=== PATIENT | male | born 1985 | race Caucasian/White ===

== ENCOUNTER 2016-05-12 12:32 | Inpatient (IN) | payer OTHER, MEDICARE ==
[~2016-05-12 12:32] MED LIST: RANI150 PO; SUCR1 PO; ZIPR40 PO
[2016-05-12] MEDS ORDERED: ALUMINUM/MAGNESIUM/SIMETH 30 ML CUP PO PRN (15:45)
[2016-05-12] MEDS ORDERED: LORazepam 2 MG/ML VIAL IM PRN (15:45)
[2016-05-12] MEDS ORDERED: MAGNESIUM HYDROXIDE SUSP 30 ML CUP PO PRN (15:45)
[2016-05-12] MEDS ORDERED: ACETAMINOPHEN 325 MG TAB PO PRN (15:45)
[2016-05-12 17:07] VITALS: BP 166/88; PULSE 78; RESP 16; TEMP 98.6
[2016-05-12] MEDS: LORazepam 1 MG TAB PO PRN (17:51)
[2016-05-12] MEDS: REMOVE OLD NICOTINE PATCH T-DERMAL SCH (21:00)
[2016-05-13 06:28] VITALS: BP 144/87; PULSE 71; RESP 16; TEMP 97.6; O2SAT 97
[2016-05-13 08:17] LABS: ANION GAP 7 MEQ/L (5-15); BICARBONATE 29.7 MEQ/L (21.0-32.0); BLOOD UREA NITROGEN 7 MG/DL (7-18); CHLORIDE 105 MEQ/L (98-107); GLOMERULAR FILTRATION RATE 76 ML/MIN (>89); HDL CHOLESTEROL 31.8 MG/DL (40.0-60.0); LDL CHOLESTEROL 106 MG/DL (0-99); POTASSIUM 3.6 MEQ/L (3.5-5.1); SODIUM (NA) 142 MEQ/L (136-145)
[2016-05-13] MEDS: NICOTINE 21 MG/24 HR PATCH T-DERMAL SCH (08:56)
[2016-05-13] MEDS: risperiDONE 1 MG TAB PO SCH ×2 (12:30→22:13)
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
[2016-05-13 14:33] LABS: HEMOGLOBIN A1a 1.2 %; HEMOGLOBIN F 1.2 %; HEMOGLOBIN LA1C 1.9 %; HEMOGLOBIN P3 3.6 %
[2016-05-13 18:35] VITALS: BP 128/74; PULSE 80; RESP 16; TEMP 98.8; O2SAT 96
[2016-05-13] MEDS: REMOVE OLD NICOTINE PATCH T-DERMAL SCH (21:00)
[2016-05-14 05:44] VITALS: BP 115/69; PULSE 62; RESP 18; TEMP 97.5; O2SAT 99
[2016-05-14] MEDS: risperiDONE 1 MG TAB PO SCH (09:00)
[2016-05-14] MEDS: NICOTINE 21 MG/24 HR PATCH T-DERMAL SCH (09:00)
--- NOTE | 2016-05-14 13:15 | HHI.PYPN ---
Subjective Remarks Patient remains delusional and feels that his parents are now . He feels he is being watched and persecuted by others who are in the law enforcement community. He is unsure of what medications he takes but is willing to try Abilify. This physician is interest and Abilify due to the long acting injectable preventing relapse. Review of Systems ROS Limitations: Clinical Condition Except as stated in HPI: all other systems reviewed are Neg Objective Alert: Yes [place]: Person, Place, Date Mood: Anxious, Calm Affect: Restricted Memory Intact: Immediate, Remote Hallucinations: Auditory Delusions: Yes Delusion Type: Paranoid, Other Suicidal: Ideation Homicidal: Ideation Insight/Judgement Impaired. Vitals/IOs Vital Signs Date Time Temp Pulse Resp B/P Pulse Ox O2 Delivery O2 Flow Rate FiO2 05/14/16 05:44 97.5 62 18 115/69 99 Intake and Output 05/13/16 05/13/16 05/14/16 08:00 16:00 00:00 Intake Total 240 ml 360 ml Balance 240 ml 360 ml Assessment & Plan Problem List: (1) Schizoaffective disorder ICD Code: F25.9 Assessment & Plan Estimated LOS: 5 days patient is obviously grossly psychotic. He remains quite delusional and complains of persecution. He would like to return to [place], working his parents supposedly live but in the next sentence he says his parents are . Unfortunately, the patient has a history of noncompliance and this physician plans to put the patient on Abilify Maintena in order to help him with relapse. Justification for Cont. Inpt. Grossly psychotic and unable to care for self. Problem Qualifiers (1) Schizoaffective disorder: Qualified Code: F25.0 - Schizoaffective disorder, bipolar type Gumaro Contreras MD May 14, 2016 13:15
[2016-05-14 17:00] VITALS: BP 152/89; PULSE 91; RESP 18; TEMP 98.1; O2SAT 97
[2016-05-14] MEDS: REMOVE OLD NICOTINE PATCH T-DERMAL SCH (21:00)
[2016-05-15 06:40] VITALS: BP 129/69; PULSE 78; RESP 18; TEMP 97.4; O2SAT 97
[2016-05-15] MEDS: NICOTINE 21 MG/24 HR PATCH T-DERMAL SCH (09:00)
--- NOTE | 2016-05-15 10:01 | HHI.PYPN ---
Subjective Remarks Patient remains paranoid and reclusive and does not socialize with other patients. He is willing to try Abilify after extensive explanation from this physician. Review of Systems ROS Limitations: Clinical Condition Objective Alert: Yes [place]: Person, Place, Date Mood: Anxious, Calm Affect: Restricted Memory Intact: Immediate, Recent, Remote Hallucinations: Auditory Delusions: Yes Delusion Type: Paranoid, Other Suicidal: Ideation Homicidal: Ideation Insight/Judgement Impaired but adequate. Vitals/IOs Vital Signs Date Time Temp Pulse Resp B/P Pulse Ox O2 Delivery O2 Flow Rate FiO2 05/15/16 06:40 97.4 78 18 129/69 97 Assessment & Plan Problem List: (1) Schizoaffective disorder ICD Code: F25.9 Assessment & Plan Estimated LOS: 3 days will attempt to stabilize patient on Abilify and attempted to titrate him off Haldol. Justification for Cont. Inpt. Paranoid and unable to care for self. Problem Qualifiers (1) Schizoaffective disorder: Qualified Code: F25.0 - Schizoaffective disorder, bipolar type Gumrao Contreras MD May 15, 2016 10:01
[2016-05-15 17:58] VITALS: BP 145/95; PULSE 87; RESP 18; TEMP 98.1; O2SAT 97
[2016-05-15] MEDS: REMOVE OLD NICOTINE PATCH T-DERMAL SCH (21:00)
[2016-05-15] MEDS: ARIPiprazole 5 MG TAB PO SCH (21:07)
[2016-05-16 06:00] VITALS: BP 108/59; PULSE 88; RESP 18; TEMP 97.4; O2SAT 98
[2016-05-16] MEDS: NICOTINE 21 MG/24 HR PATCH T-DERMAL SCH (09:00)
--- NOTE | 2016-05-16 12:59 | HHI.PYPN ---
Subjective Remarks Patient is feeling somewhat better but continues to report paranoid delusions and auditory hallucinations. He does feel less anxious on the low dose Abilify. Review of Systems ROS Limitations: Clinical Condition Except as stated in HPI: all other systems reviewed are Neg Objective Alert: Yes [place]: Person, Place, Date Mood: Anxious Affect: Restricted Memory Intact: Immediate, Recent, Remote Hallucinations: Auditory Delusions: Yes Delusion Type: Paranoid, Other Suicidal: Ideation Homicidal: Ideation Insight/Judgement Impaired but slightly improved. Vitals/IOs Vital Signs Date Time Temp Pulse Resp B/P Pulse Ox O2 Delivery O2 Flow Rate FiO2 05/16/16 06:00 97.4 88 18 108/59 98 Assessment & Plan Problem List: (1) Schizoaffective disorder ICD Code: F25.9 Assessment & Plan Estimated LOS: 3 days waiting for Abilify to help improve the patient's condition and may titrate the dose upwards. Currently the patient remains psychotic but cooperative. Justification for Cont. Inpt. Psychotic and unable to care for himself. Problem Qualifiers (1) Schizoaffective disorder: Qualified Code: F25.0 - Schizoaffective disorder, bipolar type Gumaro Contreras MD May 16, 2016 12:59
[2016-05-16 17:12] VITALS: BP 140/81; PULSE 70; RESP 18; TEMP 97.5; O2SAT 98
[2016-05-16] MEDS: REMOVE OLD NICOTINE PATCH T-DERMAL SCH (21:00)
[2016-05-16] MEDS: ARIPiprazole 5 MG TAB PO SCH (21:02)
[2016-05-17 05:28] VITALS: BP 97/63; PULSE 61; RESP 18; TEMP 97.8; O2SAT 96
[2016-05-17] MEDS: NICOTINE 21 MG/24 HR PATCH T-DERMAL SCH (09:00)
[2016-05-17] MEDS: LORazepam 1 MG TAB PO PRN ×3 (09:41→20:39)
--- NOTE | 2016-05-17 11:14 | HHI.PYPN ---
Subjective Remarks Continues to report paranoia, auditory hallucinations and suicidal ideation. Abilify has been titrated but needs time to work. Review of Systems ROS Limitations: Clinical Condition Objective Alert: Yes [place]: Person, Place, Date Mood: Anxious Affect: Restricted Memory Intact: Immediate, Recent, Remote Hallucinations: Auditory Delusions: Yes Delusion Type: Paranoid, Other Suicidal: Ideation Homicidal: Ideation Insight/Judgement Adequate Vitals/IOs Vital Signs Date Time Temp Pulse Resp B/P Pulse Ox O2 Delivery O2 Flow Rate FiO2 05/17/16 05:28 97.8 61 18 97/63 96 Intake and Output 05/16/16 05/16/16 05/17/16 08:00 16:00 00:00 Intake Total 360 ml Balance 360 ml Assessment & Plan Problem List: (1) Schizoaffective disorder ICD Code: F25.9 Assessment & Plan Estimated LOS: 3 days patient remains psychotic with paranoid delusions and auditory hallucinations of a command nature, telling him to harm himself. However he also is trying very hard and successfully to be compliant and cooperative with the hospital staff and this physician. Justification for Cont. Inpt. Command auditory hallucinations to harm himself. Problem Qualifiers (1) Schizoaffective disorder: Qualified Code: F25.0 - Schizoaffective disorder, bipolar type Gumaro Contreras MD May 17, 2016 11:14
[2016-05-17] MEDS: ARIPiprazole 5 MG TAB PO SCH (20:35)
[2016-05-17] MEDS: REMOVE OLD NICOTINE PATCH T-DERMAL SCH (21:00)
[2016-05-17 21:55] VITALS: BP 135/87; PULSE 89; RESP 18; TEMP 98.9; O2SAT 98
[2016-05-18 06:27] VITALS: BP 136/60; PULSE 81; RESP 18; TEMP 98.2; O2SAT 97
[2016-05-18] MEDS: LORazepam 1 MG TAB PO PRN ×2 (09:27→16:25)
[2016-05-18] MEDS: NICOTINE 21 MG/24 HR PATCH T-DERMAL SCH (09:27)
--- NOTE | 2016-05-18 11:59 | HHI.PYPN ---
Subjective Remarks Patient seen in activities room nurse Glenis. Patient calm though somewhat vigilant with me. He is cooperative. Now stating that he realizes his family is alive he denies any voices or visions at the present time, denies suicidality. Is compliant with medications. He states part of his relapse may have been due to his running out of medications and being unable to get the refill timely. He states he does see a clinician through [facility]. He also stated that his family is willing to have him come home today. We need to verify this with his family before making any decisions about discharge. In the meantime we'll increase his Abilify to 5 mg twice a day Review of Systems Except as stated in HPI: all other systems reviewed are Neg Objective Alert: Yes [place]: Person, Place, Date Mood: Anxious Affect: Restricted Memory Intact: Immediate, Recent, Remote Hallucinations: Auditory (denies at this time) Delusions: Yes Delusion Type: Paranoid (marked decrease), Other Suicidal: Ideation Homicidal: Ideation Insight/Judgement Poor Vitals/IOs Vital Signs Date Time Temp Pulse Resp B/P Pulse Ox O2 Delivery O2 Flow Rate FiO2 05/18/16 06:27 98.2 81 18 136/60 97 Assessment & Plan Problem List: (1) Schizoaffective disorder ICD Code: F25.9 Assessment & Plan Estimated LOS: days patient remains vigilant, compliant with medication, now denying suicidality homicidality voices or visions. The need to contact patient 's family to verify if they feel he is improved 0.3 may be discharged to their care with outpatient follow-up through [facility] Justification for Cont. Inpt. Distant patient could decompensate if placed in the lower level of care Discharge Planning To be determined Problem Qualifiers (1) Schizoaffective disorder: Qualified Code: F25.0 - Schizoaffective disorder, bipolar type oRmario Yoo MD May 18, 2016 11:59
[2016-05-18 19:28] VITALS: BP 125/82; PULSE 87; RESP 19; TEMP 97.4; O2SAT 98
[2016-05-18] MEDS: ARIPiprazole 5 MG TAB PO SCH (20:22)
[2016-05-18] MEDS: REMOVE OLD NICOTINE PATCH T-DERMAL SCH (21:00)
[2016-05-19 06:33] VITALS: BP 99/73; PULSE 72; RESP 17; TEMP 98; O2SAT 98
[2016-05-19] MEDS: NICOTINE 21 MG/24 HR PATCH T-DERMAL SCH (09:00)
[2016-05-19] MEDS: ARIPiprazole 5 MG TAB PO SCH ×2 (09:21→20:40)
--- NOTE | 2016-05-19 19:19 | HHI.PYPN ---
Subjective Remarks Pt seen and discussed with staff. He reports that AH have decreased and he is tolerating Abilify without side effects. Cooperative with care. No SI/HI. No agitation on unit. Review of Systems Psychiatric: COMPLAINS OF: Hallucinations Objective Alert: Yes [place]: Person, Place, Date Mood: Anxious Affect: Restricted Memory Intact: Immediate, Recent, Remote Hallucinations: Auditory (vague, decreased) Delusions: Yes Delusion Type: Paranoid (mild), Other Suicidal: Ideation (denies) Homicidal: Ideation (denies) Insight/Judgement limited Vitals/IOs Vital Signs Date Time Temp Pulse Resp B/P Pulse Ox O2 Delivery O2 Flow Rate FiO2 05/19/16 06:33 98.0 72 17 99/73 98 Assessment & Plan Problem List: (1) Schizoaffective disorder ICD Code: F25.9 Assessment & Plan Continue current tx plan. Estimated LOS: days Justification for Cont. Inpt. risk of decompensation Problem Qualifiers (1) Schizoaffective disorder: Qualified Code: F25.0 - Schizoaffective disorder, bipolar type Alia Jasso MD May 19, 2016 19:19
[2016-05-19 21:37] VITALS: BP 135/85; PULSE 73; RESP 16; TEMP 98.4; O2SAT 95
[2016-05-20 06:00] VITALS: BP 127/66; PULSE 68; RESP 18; TEMP 98.4; O2SAT 98
[2016-05-20] MEDS: LORazepam 1 MG TAB PO PRN ×2 (09:24→21:29)
[2016-05-20] MEDS: ARIPiprazole 5 MG TAB PO SCH ×2 (09:24→21:23)
[2016-05-20 18:09] VITALS: BP 129/80; PULSE 70; RESP 18; TEMP 97.7; O2SAT 97
--- NOTE | 2016-05-20 20:24 | HHI.PYPN ---
Subjective Remarks Pt seen and discussed with staff. He reports that AH continue to decrease and they have not been bothersome today. He is tolerating medication without side effects. No behavioral problems on unit. He is less isolative on unit. Objective Alert: Yes [place]: Person, Place, Date Mood: Calm Affect: Restricted Memory Intact: Immediate, Recent, Remote Hallucinations: Auditory (decreased) Delusions: Yes Delusion Type: Paranoid (mild), Other Suicidal: Ideation (denies) Homicidal: Ideation (denies) Insight/Judgement fair Vitals/IOs Vital Signs Date Time Temp Pulse Resp B/P Pulse Ox O2 Delivery O2 Flow Rate FiO2 05/20/16 18:09 97.7 70 18 129/80 97 Assessment & Plan Problem List: (1) Schizoaffective disorder ICD Code: F25.9 Assessment & Plan continue current tx plan. Estimated LOS: days Justification for Cont. Inpt. risk of decompensation Problem Qualifiers (1) Schizoaffective disorder: Qualified Code: F25.0 - Schizoaffective disorder, bipolar type Alia Jasso MD May 20, 2016 20:24
[2016-05-21 06:20] VITALS: BP 121/75; PULSE 65; RESP 18; TEMP 98.4; O2SAT 97
[2016-05-21] MEDS: ARIPiprazole 5 MG TAB PO SCH (09:09)
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
[2016-05-21] MEDS ORDERED: ARIP1TAB11 PO (15:27)
[2016-05-21 16:00] VITALS: BP 133/78; PULSE 75; RESP 18; TEMP 97.4; O2SAT 96
== END 2016-05-21 18:15 | disposition home or self-care (01) | DRG 885 ==
LOC: H260 12:32
PROVIDERS: ADMIT Psychiatry & Neurology Psychiatry; ATTEND Psychiatry & Neurology Psychiatry
DX: F25.0 Schizoaffective disorder, bipolar type (principal); F22 Delusional disorders; R45.851 Suicidal ideations; Z91.410 Personal history of adult physical and sexual abuse; Z91.411 Personal history of adult psychological abuse; Z91.19 Patient's noncompliance with other medical treatment and regimen
CPT/HCPCS: 80048; 80061; 83036

== ENCOUNTER 2016-06-29 12:02 | Inpatient (IN) | payer MEDICARE, OTHER ==
[~2016-06-29] VITALS: Ht 167.6 cm; Wt 85.0 kg
[~2016-06-29 12:02] MED LIST changes: +ARIP1TAB11 PO
[2016-06-29 12:20] VITALS: BP 120/82; PULSE 70; RESP 20; TEMP 98.6; O2SAT 97
--- NOTE | 2016-06-29 12:21 | PD ---
HPI Chief Complaint: Allan act Time Seen by Provider: 12:20 Travel History International Travel<30 days: No Contact w/Intl Traveler<30days: No Traveled to known affect area: No History of Present Illness HPI 31-year-old male came to the emergency room brought in by the leaf binner as a Allan act for threatening to kill himself and hearing voices. Patient continues to say this when I interviewed him. He says he does not feel like he needed wants to live anymore. He also says that he had a left eye surgery done for retinal detachment last November. He was told that his intraocular pressure is high. He has seen a retinal specialist 2 days ago in [facility] where his intraocular pressure was high. He was given eyedrops to apply and follow up in 2 weeks. Patient does not know what the eyedrops are and doesn't care. He did not bring a list of his medications. He was reluctant and giving any information regarding the pharmacy or any other information that would help us find the eyedrops out. [facility] Past Medical History Narrative Medical List of his past medical, surgical, social and family history is reviewed from the nursing note. Asthma: No Autoimmune Disease: No Anxiety: Yes Depression: Yes Heart Rhythm Problems: No Cancer: No Cardiovascular Problems: No High Cholesterol: Yes Chest Pain: No COPD: No Cerebrovascular Accident: No Diabetes: No Diminished Hearing: No Endocrine: No GERD: No Genitourinary: No Headaches: Yes (migrains) Hiatal Hernia: No Immune Disorder: No Kidney Stones: No Musculoskeletal: No Neurologic: No Psychiatric: Yes (Schizo affective, depression) Respiratory: No Immunizations Current: Yes Migraines: No Renal Failure: No Schizophrenia: Yes Seizures: No Sleep Apnea: No Thyroid Disease: No Past Surgical History Abdominal Surgery: No Cardiac Surgery: No Ear Surgery: No Endocrine Surgery: No Eye Surgery: Yes Genitourinary Surgery: No Joint Replacement: No Oral Surgery: No Thoracic Surgery: No Other Surgery: Yes (valve repair) Social History Alcohol Use: No Tobacco Use: Yes (1 ppd) Substance Use: No Allergies-Medications (Allergen,Severity, Reaction): Coded Allergies: Codeine (Verified Allergy, Severe, Anaphylaxis, 10/21/14) Haldol (Verified Allergy, Intermediate, dystonic reaction, 10/22/14) Penicillin (Verified Allergy, Unknown, INCREASED TEMP/HEAQDACHES, 06/29/16) Comments List of his allergies reviewed from the nursing note. Reported Meds & Prescriptions Reported Meds & Active Scripts Active Reported Abilify (Aripiprazole) 10 Mg Tab 10 Mg PO HS [eye] OP HS Narrative Medication List of his home medications reviewed from the nursing note. Information regarding his eyedrops are missing since patient cannot provide us with the name. Review of Systems Except as stated in HPI: all other systems reviewed are Neg Physical Exam Narrative GENERAL: Awake, alert, no obvious distress SKIN: Focused skin assessment warm/dry. HEAD: Atraumatic. Normocephalic. EYES: Pupils equal and round. No scleral icterus. Left conjunctiva is injected. ENT: No nasal bleeding or discharge. Mucous membranes pink and moist. NECK: Trachea midline. No JVD. CARDIOVASCULAR: Regular rate and rhythm. No murmur appreciated. RESPIRATORY: No accessory muscle use. Clear to auscultation. Breath sounds equal bilaterally. GASTROINTESTINAL: Abdomen soft, non-tender, nondistended. Hepatic and splenic margins not palpable. MUSCULOSKELETAL: No obvious deformities. No clubbing. No cyanosis. No edema. NEUROLOGICAL: Awake and alert. No obvious cranial nerve deficits. Motor grossly within normal limits. Normal speech. PSYCHIATRIC: Appropriate mood and affect; insight and judgment normal. Data Data Last Documented VS Vital Signs Date Time Temp Pulse Resp B/P Pulse Ox O2 Delivery O2 Flow Rate FiO2 06/29/16 17:58 98.7 61 18 131/86 95 Room Air Orders Complete Blood Count With Diff (06/29/16 12:28) Comprehensive Metabolic Panel (06/29/16 12:28) Psych Screen (06/29/16 12:28) Drug Screen, Random Urine (06/29/16 12:28) Acetaminophen (Tylenol) (06/29/16 17:00) Admit Order (Ed Use Only) (06/29/16 18:10) Labs Laboratory Tests Test 06/29/16 12:55 White Blood Count 7.0 TH/MM3 Red Blood Count 5.08 MIL/MM3 Hemoglobin 15.6 GM/DL Hematocrit 45.7 % Mean Corpuscular Volume 89.9 FL Mean Corpuscular Hemoglobin 30.7 PG Mean Corpuscular Hemoglobin 34.1 % Concent Red Cell Distribution Width 14.2 % Platelet Count 192 TH/MM3 Mean Platelet Volume 8.2 FL Neutrophils (%) (Auto) 71.9 % Lymphocytes (%) (Auto) 19.8 % Monocytes (%) (Auto) 7.6 % Eosinophils (%) (Auto) 0.4 % Basophils (%) (Auto) 0.3 % Neutrophils # (Auto) 5.0 TH/MM3 Lymphocytes # (Auto) 1.4 TH/MM3 Monocytes # (Auto) 0.5 TH/MM3 Eosinophils # (Auto) 0.0 TH/MM3 Basophils # (Auto) 0.0 TH/MM3 CBC Comment DIFF FINAL Differential Comment Sodium Level 140 MEQ/L Potassium Level 3.5 MEQ/L Chloride Level 107 MEQ/L Carbon Dioxide Level 24.9 MEQ/L Anion Gap 8 MEQ/L Blood Urea Nitrogen 9 MG/DL Creatinine 0.85 MG/DL Estimat Glomerular Filtration 104 ML/MIN Rate Random Glucose 91 MG/DL Calcium Level 8.7 MG/DL Total Bilirubin 0.6 MG/DL Aspartate Amino Transf 18 U/L (AST/SGOT) Alanine Aminotransferase 27 U/L (ALT/SGPT) Alkaline Phosphatase 83 U/L Total Protein 6.6 GM/DL Albumin 3.9 GM/DL Urine Opiates Screen NEG Urine Barbiturates Screen NEG Urine Amphetamines Screen NEG Urine Benzodiazepines Screen NEG Urine Cocaine Screen NEG Urine Cannabinoids Screen POS MDM Medical Decision Making Medical Screen Exam Complete: Yes Emergency Medical Condition: Yes Medical Record Reviewed: Yes Differential Diagnosis Suicidal ideation, substance abuse Narrative Course 1:55 PM blood test results are back. Patient is positive for cannabis but otherwise negative. I medically cleared him. He needs to be followed up by Psych for psych screen. He needs to follow-up with his drop worker outpatient as soon as possible. Procedures EKG Prior to Arrival: No Katelyn Nicole MD June 29, 2016 12:21 Katelyn Nicole MD June 29, 2016 12:21
[2016-06-29 13:20] LABS: BASOPHIL % 0.3 % (0.0-2.0); EOSINOPHIL % 0.4 % (0.0-4.0); HEMATOCRIT 45.7 % (39.0-51.0); HEMO FLAGS DIFF FINAL; LYMPH % 19.8 % (9.0-44.0); LYMPHOCYTE # 1.4 TH/MM3 (1.0-4.8); MEAN CELL VOLUME 89.9 FL (80.0-100.0); MEAN CORPUSCULAR HEMOGLOBIN 30.7 PG (27.0-34.0); MEAN CORPUSCULAR HGB CONC 34.1 % (32.0-36.0); MONO % 7.6 % (0.0-8.0); NEUT % 71.9 % (16.0-70.0); PLATELET COUNT 192 TH/MM3 (150-450); RED BLOOD COUNT 5.08 MIL/MM3 (4.50-5.90); RED CELL DISTRIBUTION WIDTH 14.2 % (11.6-17.2)
[2016-06-29 13:32] LABS: AMPHETAMINE, URINE NEG (NEG); BARBITURATES, URINE NEG (NEG); COCAINE, URINE NEG (NEG)
[2016-06-29 13:43] LABS: ALT (GPT) 27 U/L (12-78); ANION GAP 8 MEQ/L (5-15); AST (GOT) 18 U/L (15-37); BICARBONATE 24.9 MEQ/L (21.0-32.0); BLOOD UREA NITROGEN 9 MG/DL (7-18); CHLORIDE 107 MEQ/L (98-107); GLOMERULAR FILTRATION RATE 104 ML/MIN (>89); POTASSIUM 3.5 MEQ/L (3.5-5.1); SODIUM (NA) 140 MEQ/L (136-145)
[2016-06-29 13:46] LABS: ALKALINE PHOSPHATASE 83 U/L (45-117); TOTAL BILIRUBIN ADULT 0.6 MG/DL (0.2-1.0)
[2016-06-29] MEDS ORDERED: EYE OP (16:37)
[2016-06-29] MEDS ORDERED: ACETAMINOPHEN 500 MG CPLT PO ONE (17:00)
[2016-06-29 17:58] VITALS: BP 131/86; PULSE 61; RESP 18; TEMP 98.7; O2SAT 95
[2016-06-29] MEDS ORDERED: ARIP1TAB5 PO (17:58)
[2016-06-29] MEDS ORDERED: diphenhydrAMINE HCL 50 MG/ML VIAL - HS PRN IM (19:30)
[2016-06-29] MEDS ORDERED: ALUMINUM/MAGNESIUM/SIMETH 30 ML CUP PO PRN (19:30)
[2016-06-29] MEDS ORDERED: MAGNESIUM HYDROXIDE SUSP 30 ML CUP PO PRN (19:30)
[2016-06-29] MEDS: ARIPiprazole 10 MG TAB PO SCH (20:46)
[2016-06-29 22:17] VITALS: BP 130/68; PULSE 57; RESP 17; TEMP 97.4
[2016-06-30 02:19] VITALS: BP 130/68; PULSE 17; RESP 17; TEMP 97.4; O2SAT 97
[2016-06-30 06:23] VITALS: BP 130/64; PULSE 52; RESP 18; TEMP 97.6; O2SAT 98
[2016-06-30] MEDS: ARIPiprazole 10 MG TAB PO SCH ×2 (08:59→21:03)
[2016-06-30] MEDS ORDERED: MAGNESIUM HYDROXIDE SUSP 30 ML CUP PO PRN (09:15)
[2016-06-30] MEDS ORDERED: ACETAMINOPHEN 325 MG TAB PO PRN (09:15)
[2016-06-30] MEDS ORDERED: hydrOXYzine HCL 50 MG TAB PO PRN (09:15)
[2016-06-30] MEDS ORDERED: ALUMINUM/MAGNESIUM/SIMETH 30 ML CUP PO PRN (09:15)
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
[2016-06-30 14:09] LABS: ANION GAP 8 MEQ/L (5-15); BICARBONATE 27.5 MEQ/L (21.0-32.0); BLOOD UREA NITROGEN 9 MG/DL (7-18); CHLORIDE 107 MEQ/L (98-107); GLOMERULAR FILTRATION RATE 77 ML/MIN (>89); SODIUM (NA) 142 MEQ/L (136-145)
[2016-06-30 14:11] LABS: LDL CHOLESTEROL 87 MG/DL (0-99)
[2016-06-30] MEDS: PANTOPRAZOLE SOD 40 MG DELAYED RELEASE TAB PO SCH (15:20)
--- NOTE | 2016-06-30 16:19 | PD.CONS ---
[facility] By [facility]iatry team Reason for Consult Assist in management of medical condition Primary Care Physician No Primary Care Physician Diagnoses: History of Present Illness Patient is a 71-year-old male with primary medical history of depression, anxiety, retinal detachment, glaucoma who came into the hospital under [place] act by clinical pharmacist secondary to threatening to kill himself and hearing voices. As per review of records, patient states he doesn't want to live anymore. He is now admitted to inpatient psychiatry unit for further evaluation. Consulted for medical management. Patient seen and examined today. Reports he has retinal detachment with surgery November 2015. 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 She also has eyedrops for his left eye that he doesn't remember the name of. States that he has increased intraocular pressure that he needed eyedrops. Patient states that he is in a lot of stress at home and that his family members [place] his brother or being hostile to him in they have been having family fights. He complains of abdominal pain all throughout, nonradiating, not aggravated or relieved by anything, intermitted states it comes and goes. Reports he has a history of ulcers in that he is taking the medication for it prior. He also complains of weakness secondary to starvation. He is trying to get out of his home. Patient also had that he has fevers, he feels that he is warm but unable to tell the temperature or was not able to check it. He also complains of headaches comes and goes starts in the frontal region going of the right side, this has been his chronic problem. Due to retinal detachment and glaucoma, patient's vision on the left eye is limited. Otherwise, denies SOB/ dyspnea. Denies chest pain, palpitations, dizziness. Denies n/v/d. Denies hematuria, dysuria. Review of Systems Except as stated in HPI: all other systems reviewed are Neg Past Family Social History Allergies: Coded Allergies: Codeine (Verified Allergy, Severe, Anaphylaxis, 10/21/14) Haldol (Verified Allergy, Intermediate, dystonic reaction, 10/22/14) Penicillin (Verified Allergy, Unknown, INCREASED TEMP/HEAQDACHES, 06/29/16) Past Medical History Depression Anxiety Schizoaffective disorder Retinal detachment Glaucoma Past Surgical History EGD secondary to ulcers Reported Medications Reported Meds & Active Scripts Active Reported Abilify (Aripiprazole) 10 Mg Tab 10 Mg PO HS [eye] OP HS Active Ordered Medications Current Medications Medications (Trade) Dose Ordered Sig/Radha Route Start Time Stop Time Status Last Admin (Abilify) 10 mg BID PO 06/29/16 21:00 06/30/16 08:59 (Atarax) 50 mg Q6H PRN PO 06/29/16 19:30 (Benadryl) 50 mg HS PRN PO 06/29/16 19:30 (Benadryl Inj) 50 mg HS PRN IM 06/29/16 19:30 (Tylenol) 650 mg Q4H PRN PO 06/29/16 19:30 (Milk Of Magnesia Liq) 30 ml DAILY PRN PO 06/29/16 19:30 (Mag-Al Plus Susp Liq) 30 ml Q6H PRN PO 06/29/16 19:30 (Tylenol) 650 mg Q4H PRN PO 06/30/16 09:15 (Milk Of Magnesia Liq) 30 ml DAILY PRN PO 06/30/16 09:15 (Mag-Al Plus Susp Liq) 30 ml Q6H PRN PO 06/30/16 09:15 (Atarax) 50 mg Q6H PRN PO 06/30/16 09:15 (Protonix) 40 mg DAILY PO 06/30/16 15:00 06/30/16 15:20 Family History Family history of hypertension, diabetes, hyperlipidemia Social History Reports occasional alcohol use Current smoker quarter pack per day Denies illicit drug use, utox positive for cannabis Physical Exam Vital Signs Vital Signs Date Time Temp Pulse Resp B/P Pulse Ox O2 Delivery O2 Flow Rate FiO2 06/30/16 06:23 97.6 52 18 130/64 98 06/30/16 02:19 97.4 17 17 130/68 97 06/29/16 22:17 97.4 57 17 130/68 06/29/16 17:58 98.7 61 18 131/86 95 Room Air Physical Exam GENERAL: This is a well-nourished, well-developed patient, in no apparent distress. SKIN: No rashes, ecchymoses or lesions. Cool and dry. HEAD: Atraumatic. Normocephalic. No temporal or scalp tenderness. EYES: Pupils round and reactive, Left pupil >Right pupil, and sluggish reaction. Extraocular motions intact. No scleral icterus. No injection or drainage. ENT: Nose without bleeding, purulent drainage or septal hematoma. Throat without erythema, tonsillar hypertrophy or exudate. Uvula midline. Airway patent. NECK: Trachea midline. No JVD or lymphadenopathy. Supple, nontender, no meningeal signs. CARDIOVASCULAR: Regular rate and rhythm without murmurs, gallops, or rubs. RESPIRATORY: Clear to auscultation. Breath sounds equal bilaterally. No wheezes , rales, or rhonchi. GASTROINTESTINAL: Abdomen soft, non-tender, nondistended. Bowel sounds active 4. MUSCULOSKELETAL: Extremities without clubbing, cyanosis, or edema. NEUROLOGICAL: Awake and alert. Motor and sensory grossly within normal limits. Five out of 5 muscle strength in all muscle groups. Normal speech. Laboratory Laboratory Tests Test 06/30/16 12:42 Sodium Level 142 Potassium Level 4.0 Chloride Level 107 Carbon Dioxide Level 27.5 Anion Gap 8 Blood Urea Nitrogen 9 Creatinine 1.10 Estimat Glomerular Filtration 77 Rate Random Glucose 97 Calcium Level 8.5 Triglycerides Level 163 Cholesterol Level 149 LDL Cholesterol 87 HDL Cholesterol 29.0 Cholesterol/HDL Ratio 5.13 Result Diagram: 06/29/16 1255 06/30/16 1242 Assessment and Plan Problem List: (1) Schizoaffective disorder ICD Code: F25.9 Status: Acute (2) Depression ICD Code: F32.9 Status: Acute Assessment and Plan Patient is a 71-year-old male with primary medical history of depression, anxiety, retinal detachment, glaucoma who came into the hospital under [place] act by clinical pharmacist secondary to threatening to kill himself and hearing voices. As per review of records, patient states he doesn't want to live anymore. He is now admitted to inpatient psychiatry unit for further evaluation. Consulted for medical management. 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 We will follow patient with you. Written by Sima Culp, acting as scribe for Dr. Patino on 06/30/16 at 16: 19. This note was transcribed by ranjit Culp. I, Dr. Akbar Patino personally performed the history, physical exam, and medical decision making; and confirmed the accuracy of the information in the transcribed note. Authenticated by Dr. Akbar Patino on 06/30/16 at 16:59. Code Status Full code Discussed Condition With Patient, nursing Problem Qualifiers (1) Schizoaffective disorder: Qualified Code: F25.1 - Schizoaffective disorder, depressive type Sima Easton June 30, 2016 16:19 Akbar Patino DO June 30, 2016 16:59
[2016-06-30 16:44] VITALS: BP 124/75; PULSE 74; RESP 18; TEMP 97.8; O2SAT 97
[2016-07-01 06:00] VITALS: BP 132/75; PULSE 80; RESP 16; TEMP 98
[2016-07-01] MEDS: PANTOPRAZOLE SOD 40 MG DELAYED RELEASE TAB PO SCH (09:02)
[2016-07-01] MEDS: ARIPiprazole 10 MG TAB PO SCH ×2 (09:02→20:19)
--- NOTE | 2016-07-01 10:31 | HHI.PYPN ---
Subjective Remarks Patient seen in room nurse Cherelle, patient calm cooperative states that hallucinations are diminishing, denies suicidality, is compliant with his medications. For now continue treatment Review of Systems Except as stated in HPI: all other systems reviewed are Neg Objective Alert: Yes [place]: Person, Place, Date Mood: Anxious (slightly), Calm Affect: Restricted Memory Intact: Comment (fair) Hallucinations: Auditory (decreased) Delusions: No Delusion Type: Other (vigilant) Suicidal: Ideation (denies) Homicidal: Ideation (denies) Insight/Judgment Poor Labs Test 06/30/16 12:42 Sodium Level 142 MEQ/L Potassium Level 4.0 MEQ/L Chloride Level 107 MEQ/L Carbon Dioxide Level 27.5 MEQ/L Anion Gap 8 MEQ/L Blood Urea Nitrogen 9 MG/DL Creatinine 1.10 MG/DL Estimat Glomerular Filtration 77 ML/MIN Rate Random Glucose 97 MG/DL Calcium Level 8.5 MG/DL Triglycerides Level 163 MG/DL Cholesterol Level 149 MG/DL LDL Cholesterol 87 MG/DL HDL Cholesterol 29.0 MG/DL Cholesterol/HDL Ratio 5.13 RATIO Lipase 171 U/L Vitals/IOs Vital Signs Date Time Temp Pulse Resp B/P Pulse Ox O2 Delivery O2 Flow Rate FiO2 07/01/16 06:00 98.0 80 16 132/75 06/30/16 16:44 97 06/29/16 17:58 Room Air Assessment & Plan Problem List: (1) Schizoaffective disorder ICD Code: F25.9 (2) Marijuana abuse ICD Code: F12.10 Assessment & Plan Estimated LOS: days patient continue psychotic somewhat depressed, though improved. For now continue treatment Justification for Cont. Inpt. At this time patient decompensate if placed in a lower level of care Discharge Planning To be determined Request HC Surrog/Guard Advoc?: No Problem Qualifiers (1) Schizoaffective disorder: Qualified Code: F25.1 - Schizoaffective disorder, depressive type Romario Yoo MD July 01, 2016 10:31
[2016-07-01 10:54] LABS: HEMOGLOBIN A1a 1.1 %; HEMOGLOBIN A1b 0.9 %; HEMOGLOBIN Ao 85.7 %; HEMOGLOBIN F 1.1 %; HEMOGLOBIN P3 3.6 %
[2016-07-01] MEDS ORDERED: LATANOPROST 0.005% OPHT SOLN 2.5 ML BTL LEFT EYE ONE (11:15)
[2016-07-01 18:24] VITALS: BP 158/83; PULSE 82; RESP 18; TEMP 98.5; O2SAT 100
[2016-07-01] MEDS: hydrOXYzine HCL 50 MG TAB PO PRN (20:19)
[2016-07-01] MEDS: LATANOPROST 0.005% OPHT SOLN 2.5 ML BTL LEFT EYE SCH (20:19)
[2016-07-01] MEDS: diphenhydrAMINE HCL 50 MG CAP - HS PRN PO (20:19)
[2016-07-02 06:14] VITALS: BP 114/67; PULSE 81; RESP 17; TEMP 97.8; O2SAT 98
[2016-07-02] MEDS: PANTOPRAZOLE SOD 40 MG DELAYED RELEASE TAB PO SCH (09:22)
[2016-07-02] MEDS: ARIPiprazole 10 MG TAB PO SCH ×2 (09:22→20:00)
--- NOTE | 2016-07-02 10:37 | HHI.PYPN ---
Subjective Remarks Patient seen in his room with nurse Taisha Hernandez counselor Mc, chart reviewed, compliant medications, patient continues somewhat vigilant and isolating though states this voices have markedly decreased, he denies suicidality. She still feels some conflictual relationship with his parents continues to be willing to consider an [facility] placement though that it may be some financial considerations with that that would lead him to need to stay with parents until the end of the month. Have counselor check with family Review of Systems Except as stated in HPI: all other systems reviewed are Neg Objective Alert: Yes [place]: Person, Place, Date Mood: Anxious (slightly), Calm Affect: Restricted Memory Intact: Comment (fair) Hallucinations: Auditory (decreased) Delusions: No Delusion Type: Other (vigilant) Suicidal: Ideation (denies) Homicidal: Ideation (denies) Insight/Judgment Poor Vitals/IOs Vital Signs Date Time Temp Pulse Resp B/P Pulse Ox O2 Delivery O2 Flow Rate FiO2 07/02/16 06:14 97.8 81 17 114/67 98 06/29/16 17:58 Room Air Assessment & Plan Problem List: (1) Schizoaffective disorder ICD Code: F25.9 (2) Marijuana abuse ICD Code: F12.10 Assessment & Plan Estimated LOS: days patient continue psychotic, though now denying suicidality. Compliant medications. For now continue treatment Justification for Cont. Inpt. At this time patient will decompensate if placed in a lower level of care Discharge Planning To be determined Request HC Surrog/Guard Advoc?: No Problem Qualifiers (1) Schizoaffective disorder: Qualified Code: F25.1 - Schizoaffective disorder, depressive type Romario Yoo MD July 02, 2016 10:37
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
--- NOTE | 2016-07-02 15:03 | HHI.PR ---
Addendum to Inpatient Note Addendum Reason: Additional Documentation Additional Information Patient was started on latanoprost for his retinal detachment, glaucoma treatment for IOP. RUBENS Rees verified with [facility] patient's eye drops and he takes Travatan 0.004% Left eye QHS. Travatan is nonformulary and patient can continue with latanoprost until he goes home and continue with his home eyedrops. Follow up with ophthalmology in outpatient. Discussed with nursing, Dr. Sukumar Persaud from Hospitalist standpoint. We will sign off. Reconsult as needed. Sima Easton [facility] July 02, 2016 15:03
[2016-07-02 18:00] VITALS: BP 113/61; PULSE 60; RESP 16; TEMP 98.7; O2SAT 98
[2016-07-02] MEDS: hydrOXYzine HCL 50 MG TAB PO PRN (20:00)
[2016-07-02] MEDS: diphenhydrAMINE HCL 50 MG CAP - HS PRN PO (20:00)
[2016-07-02] MEDS: LATANOPROST 0.005% OPHT SOLN 2.5 ML BTL LEFT EYE SCH (20:00)
[2016-07-03 06:08] VITALS: BP 125/71; PULSE 61; RESP 17; TEMP 97.5; O2SAT 98
[2016-07-03] MEDS: PANTOPRAZOLE SOD 40 MG DELAYED RELEASE TAB PO SCH (09:41)
[2016-07-03] MEDS: ARIPiprazole 10 MG TAB PO SCH (09:41)
[2016-07-03] MEDS: hydrOXYzine HCL 50 MG TAB PO PRN (09:42)
--- NOTE | 2016-07-03 11:32 | HHI.PYPN ---
Subjective Remarks Patient seen in day room with nurse Katelin, patient increasingly guarded and vigilant, vague about continued auditory hallucinations, he also continues to isolate. He is vague about the situation with his family. Compliant medications will increase Abilify to 15 mg twice a day Review of Systems Except as stated in HPI: all other systems reviewed are Neg Objective Alert: Yes [place]: Person, Place, Date Mood: Anxious (slightly), Calm Affect: Restricted Memory Intact: Comment (fair) Hallucinations: Auditory (decreased) Delusions: No Delusion Type: Other (vigilant) Suicidal: Ideation (denies) Homicidal: Ideation (denies) Insight/Judgment Very poor Vitals/IOs Vital Signs Date Time Temp Pulse Resp B/P Pulse Ox O2 Delivery O2 Flow Rate FiO2 07/03/16 06:08 97.5 61 17 125/71 98 06/29/16 17:58 Room Air Assessment & Plan Problem List: (1) Schizoaffective disorder ICD Code: F25.9 (2) Marijuana abuse ICD Code: F12.10 Assessment & Plan Estimated LOS: days patient showing some slight increase in his psychosis today this paranoia and vigilance, is also being ambiguity related to the situation of his family. Will increase Abilify to 15 mg twice a day Justification for Cont. Inpt. At this time patient will decompensate if placed in a lower level of care Discharge Planning To be determined Request HC Surrog/Guard Advoc?: No Problem Qualifiers (1) Schizoaffective disorder: Qualified Code: F25.1 - Schizoaffective disorder, depressive type Romario Yoo MD July 03, 2016 11:32
[2016-07-03] MEDS: ACETAMINOPHEN 325 MG TAB PO PRN (12:23)
[2016-07-03] MEDS: LORazepam 0.5 MG TAB PO PRN ×2 (12:23→20:44)
[2016-07-03 20:40] VITALS: BP 116/75; PULSE 65; RESP 18; TEMP 98.6; O2SAT 99
[2016-07-03] MEDS: ARIPiprazole 15 MG TAB PO SCH (20:44)
[2016-07-03] MEDS: LATANOPROST 0.005% OPHT SOLN 2.5 ML BTL LEFT EYE SCH (20:45)
[2016-07-04 06:05] VITALS: BP 124/62; PULSE 61; RESP 18; TEMP 97.4; O2SAT 97
[2016-07-04] MEDS: ACETAMINOPHEN 325 MG TAB PO PRN ×2 (09:06→17:22)
[2016-07-04] MEDS: ARIPiprazole 15 MG TAB PO SCH ×2 (09:06→20:07)
[2016-07-04] MEDS: LORazepam 0.5 MG TAB PO PRN ×2 (09:06→17:19)
[2016-07-04] MEDS: PANTOPRAZOLE SOD 40 MG DELAYED RELEASE TAB PO SCH (09:06)
--- NOTE | 2016-07-04 15:43 | HHI.PYPN ---
Subjective Remarks Patient seen in day room with nurse Claudette, chart review, patient states the voices persist but are somewhat diminishing feels his mood is decreasing also will consider adding antidepressant regimen perhaps Lexapro 10 mg daily. He is otherwise compliant with medicine. At this point I feel patient has the capacity to sign for his admission will lift [place] act allow the patient to sign voluntary Review of Systems Except as stated in HPI: all other systems reviewed are Neg Objective Alert: Yes [place]: Person, Place, Date Mood: Anxious (slightly), Calm Affect: Restricted Memory Intact: Comment (fair) Hallucinations: Auditory (decreased) Delusions: No Delusion Type: Other (vigilant) Suicidal: Ideation (denies) Homicidal: Ideation (denies) Insight/Judgment Poor Vitals/IOs Vital Signs Date Time Temp Pulse Resp B/P Pulse Ox O2 Delivery O2 Flow Rate FiO2 07/04/16 06:05 97.4 61 18 124/62 97 Assessment & Plan Problem List: (1) Schizoaffective disorder ICD Code: F25.9 (2) Marijuana abuse ICD Code: F12.10 Assessment & Plan Estimated LOS: days patient psychosis persists, some decrease in his mood will add Lexapro 10 mg daily to the regimen Justification for Cont. Inpt. At this time patient would decompensate to place to the lower level of care Discharge Planning To be determined Request HC Surrog/Guard Advoc?: No Problem Qualifiers (1) Schizoaffective disorder: Qualified Code: F25.1 - Schizoaffective disorder, depressive type Romario Yoo MD July 04, 2016 15:43
[2016-07-04 18:08] VITALS: BP 144/77; PULSE 62; RESP 18; TEMP 98.4; O2SAT 97
[2016-07-04] MEDS: LATANOPROST 0.005% OPHT SOLN 2.5 ML BTL LEFT EYE SCH (20:07)
[2016-07-04] MEDS: diphenhydrAMINE HCL 50 MG CAP - HS PRN PO (20:07)
[2016-07-04] MEDS: hydrOXYzine HCL 50 MG TAB PO PRN (20:07)
[2016-07-05 05:38] VITALS: BP 132/59; PULSE 61; RESP 18; TEMP 97.9; O2SAT 98
[2016-07-05] MEDS: ESCITALOPRAM OXALATE 10 MG TAB PO SCH (08:36)
[2016-07-05] MEDS: PANTOPRAZOLE SOD 40 MG DELAYED RELEASE TAB PO SCH (08:36)
[2016-07-05] MEDS: ARIPiprazole 15 MG TAB PO SCH ×2 (08:36→20:48)
[2016-07-05 15:11] VITALS: BP 117/77; PULSE 66; RESP 16; TEMP 99.5
--- NOTE | 2016-07-05 16:00 | HHI.PYPN ---
Subjective Remarks Patient seen in day room with nurse Yari, chart review, patient continues to isolate somewhat though today pressure slight increase in affect denying any voices today. Assessment compliant with medication now continue treatment Review of Systems Except as stated in HPI: all other systems reviewed are Neg Objective Alert: Yes [place]: Person, Place, Date Mood: Anxious (slightly), Calm Affect: Restricted Memory Intact: Comment (fair) Hallucinations: Auditory (decreased) Delusions: No Delusion Type: Other (vigilant) Suicidal: Ideation (denies) Homicidal: Ideation (denies) Insight/Judgment Poor Vitals/IOs Vital Signs Date Time Temp Pulse Resp B/P Pulse Ox O2 Delivery O2 Flow Rate FiO2 07/05/16 15:11 99.5 66 16 117/77 07/05/16 05:38 98 Assessment & Plan Problem List: (1) Schizoaffective disorder ICD Code: F25.9 (2) Marijuana abuse ICD Code: F12.10 Assessment & Plan Estimated LOS: days patient psychosis is slowly resolving, compliant medications the patient remains somewhat vigilant and isolative Justification for Cont. Inpt. At this time patient will decompensate place to the lower level of care Discharge Planning To be determined Request HC Surrog/Guard Advoc?: No Problem Qualifiers (1) Schizoaffective disorder: Qualified Code: F25.1 - Schizoaffective disorder, depressive type Romario Yoo MD July 05, 2016 16:00
[2016-07-05] MEDS: diphenhydrAMINE HCL 50 MG CAP - HS PRN PO (20:50)
[2016-07-05] MEDS: LATANOPROST 0.005% OPHT SOLN 2.5 ML BTL LEFT EYE SCH (21:00)
[2016-07-06 06:24] VITALS: BP 130/73; PULSE 70; RESP 18; TEMP 97.9; O2SAT 95
[2016-07-06] MEDS: PANTOPRAZOLE SOD 40 MG DELAYED RELEASE TAB PO SCH (09:00)
[2016-07-06] MEDS: ARIPiprazole 15 MG TAB PO SCH ×2 (09:00→20:52)
[2016-07-06] MEDS: ESCITALOPRAM OXALATE 10 MG TAB PO SCH (09:00)
--- NOTE | 2016-07-06 15:20 | HHI.PYPN ---
Subjective Remarks Patient seen in room with nurse came, patient feeling calmer today states voices are gone today. Though earlier today he mentioned vague voices to the nurse. Otherwise no behavioral problems, compliant medications Review of Systems Except as stated in HPI: all other systems reviewed are Neg Objective Alert: Yes [place]: Person, Place, Date Mood: Anxious (slightly), Calm Affect: Restricted Memory Intact: Comment (fair) Hallucinations: Auditory (decreased) Delusions: No Delusion Type: Other (vigilant) Suicidal: Ideation (denies) Homicidal: Ideation (denies) Insight/Judgment Poor Vitals/IOs Vital Signs Date Time Temp Pulse Resp B/P Pulse Ox O2 Delivery O2 Flow Rate FiO2 07/06/16 06:24 97.9 70 18 130/73 95 Assessment & Plan Problem List: (1) Schizoaffective disorder ICD Code: F25.9 (2) Marijuana abuse ICD Code: F12.10 Assessment & Plan Estimated LOS: days patient psychosis slowly resolving, compliant medications, for now continue treatment Justification for Cont. Inpt. At this time patient will decompensate the placed at a lower level of care Discharge Planning To be determined Request HC Surrog/Guard Advoc?: No Problem Qualifiers (1) Schizoaffective disorder: Qualified Code: F25.1 - Schizoaffective disorder, depressive type Romario Yoo MD July 06, 2016 15:20
[2016-07-06 18:15] VITALS: BP 145/64; PULSE 68; RESP 14; TEMP 98.4; O2SAT 97
[2016-07-06] MEDS: LATANOPROST 0.005% OPHT SOLN 2.5 ML BTL LEFT EYE SCH (20:52)
[2016-07-06] MEDS: diphenhydrAMINE HCL 50 MG CAP - HS PRN PO (21:00)
[2016-07-06] MEDS: hydrOXYzine HCL 50 MG TAB PO PRN (21:00)
[2016-07-07 06:12] VITALS: BP 136/85; PULSE 71; RESP 17; TEMP 98.1; O2SAT 97
[2016-07-07] MEDS: PANTOPRAZOLE SOD 40 MG DELAYED RELEASE TAB PO SCH (08:24)
[2016-07-07] MEDS: ESCITALOPRAM OXALATE 10 MG TAB PO SCH (08:24)
[2016-07-07] MEDS: ARIPiprazole 15 MG TAB PO SCH ×2 (08:24→20:12)
--- NOTE | 2016-07-07 15:45 | HHI.PYPN ---
Subjective Remarks Patient was seen and case discussed with nursing. Patient is pleasant and cooperative with exam. He notes an improvement in positive symptoms but he remains quite flat and monotone. Says the auditory hallucinations are faint. And notices an improvement in his paranoia. No specific delusions were elicited. Continues to respond to internal stimuli per nursing. Denies suicidal ideation intent or plan. Compliant with medications Objective Alert: Yes [place]: Person, Place, Date Mood: Anxious (slightly) Affect: Flat Memory Intact: Comment (fair) Hallucinations: Auditory (decreased) Delusions: No Delusion Type: Other (vigilant) Suicidal: Ideation (denies) Homicidal: Ideation (denies) Insight/Judgment Poor Vitals/IOs Vital Signs Date Time Temp Pulse Resp B/P Pulse Ox O2 Delivery O2 Flow Rate FiO2 07/07/16 06:12 98.1 71 17 136/85 97 Assessment & Plan Problem List: (1) Schizoaffective disorder ICD Code: F25.9 (2) Marijuana abuse ICD Code: F12.10 Assessment & Plan Continue current treatment plan Justification for Cont. Inpt. Patient will decompensate in a less restrictive setting Request HC Surrog/Guard Advoc?: No Problem Qualifiers (1) Schizoaffective disorder: Qualified Code: F25.1 - Schizoaffective disorder, depressive type Ru Pardo DO July 07, 2016 15:45
[2016-07-07 18:10] VITALS: BP 154/70; PULSE 78; RESP 18; TEMP 99.4; O2SAT 99
[2016-07-07] MEDS: LATANOPROST 0.005% OPHT SOLN 2.5 ML BTL LEFT EYE SCH (20:10)
[2016-07-07] MEDS: diphenhydrAMINE HCL 50 MG CAP - HS PRN PO (20:12)
[2016-07-08 06:26] VITALS: BP 131/81; PULSE 68; RESP 18; TEMP 97.9; O2SAT 98
[2016-07-08] MEDS: ARIPiprazole 15 MG TAB PO SCH ×2 (08:33→20:38)
[2016-07-08] MEDS: PANTOPRAZOLE SOD 40 MG DELAYED RELEASE TAB PO SCH (08:33)
[2016-07-08] MEDS: ESCITALOPRAM OXALATE 10 MG TAB PO SCH (08:33)
--- NOTE | 2016-07-08 16:06 | HHI.PYPN ---
Subjective Remarks Patient was seen and case discussed with nursing. Patient is pleasant and cooperative with exam. He notes an improvement in positive symptoms with the voices "fading." No delusions were elicited. However remains with prominent negative symptoms flat affect and poor eye contact long with a monotone prosody. Compliant with his medications and tolerating them well. Behaving well on the unit. Objective Alert: Yes [place]: Person, Place, Date Mood: Anxious Affect: Blunted Memory Intact: Comment (fair) Hallucinations: Auditory (fading) Delusions: No Delusion Type: Other (vigilant) Suicidal: Ideation (denies) Homicidal: Ideation (denies) Insight/Judgment Improving Vitals/IOs Vital Signs Date Time Temp Pulse Resp B/P Pulse Ox O2 Delivery O2 Flow Rate FiO2 07/08/16 06:26 97.9 68 18 131/81 98 Assessment & Plan Problem List: (1) Schizoaffective disorder ICD Code: F25.9 (2) Marijuana abuse ICD Code: F12.10 Assessment & Plan Continue current treatment plan Justification for Cont. Inpt. Patient will decompensate in a less restrictive setting Request HC Surrog/Guard Advoc?: No Problem Qualifiers (1) Schizoaffective disorder: Qualified Code: F25.1 - Schizoaffective disorder, depressive type Ru Pardo DO July 08, 2016 16:06
[2016-07-08 20:05] VITALS: BP 123/73; PULSE 59; RESP 18; TEMP 97.9; O2SAT 98
[2016-07-08] MEDS: diphenhydrAMINE HCL 50 MG CAP - HS PRN PO (20:38)
[2016-07-08] MEDS: LATANOPROST 0.005% OPHT SOLN 2.5 ML BTL LEFT EYE SCH (20:39)
[2016-07-09 06:06] VITALS: BP 115/70; PULSE 42; RESP 17; TEMP 98.7; O2SAT 100
[2016-07-09] MEDS: ESCITALOPRAM OXALATE 10 MG TAB PO SCH (08:07)
[2016-07-09] MEDS: PANTOPRAZOLE SOD 40 MG DELAYED RELEASE TAB PO SCH (08:07)
[2016-07-09] MEDS: ARIPiprazole 15 MG TAB PO SCH ×2 (08:07→20:12)
[2016-07-09] MEDS: LORazepam 0.5 MG TAB PO PRN ×2 (08:13→20:11)
--- NOTE | 2016-07-09 17:35 | HHI.PYPN ---
Subjective Remarks Patient seen in day room with nurse Abe, patient states he continues to do good staff feels he has had some of the down date today. Patient acknowledges a history of poor compliance medication of the community though he describes it at times just funding and chest rotation. We'll consider the addition of Abilify maintain at the regimen Review of Systems Except as stated in HPI: all other systems reviewed are Neg Objective Alert: Yes [place]: Person, Place, Date Mood: Anxious Affect: Blunted Memory Intact: Comment (fair) Hallucinations: Auditory (fading) Delusions: No Delusion Type: Other (vigilant) Suicidal: Ideation (denies) Homicidal: Ideation (denies) Insight/Judgment Very poor Vitals/IOs Vital Signs Date Time Temp Pulse Resp B/P Pulse Ox O2 Delivery O2 Flow Rate FiO2 07/09/16 06:06 98.7 42 17 115/70 100 Assessment & Plan Problem List: (1) Schizoaffective disorder ICD Code: F25.9 (2) Marijuana abuse ICD Code: F12.10 Assessment & Plan Estimated LOS: days patient continues somewhat vigilant, and isolating. Though some his need for perhaps a long-term maintenance medication we'll consider Abilify maintain a Justification for Cont. Inpt. At this time patient will decompensate placed in a lower level of care Discharge Planning To be determined Request HC Surrog/Guard Advoc?: No Problem Qualifiers (1) Schizoaffective disorder: Qualified Code: F25.1 - Schizoaffective disorder, depressive type Romario Yoo MD July 09, 2016 17:35
[2016-07-09 18:59] VITALS: BP 141/80; PULSE 68; RESP 18; TEMP 98.3; O2SAT 98
[2016-07-09] MEDS: diphenhydrAMINE HCL 50 MG CAP - HS PRN PO (20:11)
[2016-07-09] MEDS: LATANOPROST 0.005% OPHT SOLN 2.5 ML BTL LEFT EYE SCH (20:12)
[2016-07-10 05:49] VITALS: BP 111/65; PULSE 59; RESP 18; TEMP 97.5; O2SAT 98
[2016-07-10] MEDS: ESCITALOPRAM OXALATE 10 MG TAB PO SCH (09:00)
[2016-07-10] MEDS: PANTOPRAZOLE SOD 40 MG DELAYED RELEASE TAB PO SCH (09:00)
[2016-07-10] MEDS: ARIPiprazole 15 MG TAB PO SCH ×2 (09:00→20:44)
--- NOTE | 2016-07-10 12:43 | HHI.PYPN ---
Subjective Remarks Patient seen in [place] with nurse Yari, states she is feeling slightly better though the voices continue with [place] "positive". Discussed the benefit of a long-acting injection patient undertake Abilify maintain a 400 mg every 28 days will order that at the present time Review of Systems Except as stated in HPI: all other systems reviewed are Neg Objective Alert: Yes [place]: Person, Place, Date Mood: Anxious Affect: Blunted Memory Intact: Comment (fair) Hallucinations: Auditory (fading) Delusions: No Delusion Type: Other (vigilant) Suicidal: Ideation (denies) Homicidal: Ideation (denies) Insight/Judgment Poor Vitals/IOs Vital Signs Date Time Temp Pulse Resp B/P Pulse Ox O2 Delivery O2 Flow Rate FiO2 07/10/16 05:49 97.5 59 18 111/65 98 Assessment & Plan Problem List: (1) Schizoaffective disorder ICD Code: F25.9 (2) Marijuana abuse ICD Code: F12.10 Assessment & Plan Estimated LOS: days patient psychosis persist though somewhat softer. Patient showing some insight into his poor compliance in the community with oral medication. Will order Abilify maintain a 400 mg to be given IM today and every 28 days Justification for Cont. Inpt. At this time patient will decompensate and placed a lower level of care Discharge Planning To be determined Request HC Surrog/Guard Advoc?: No Problem Qualifiers (1) Schizoaffective disorder: Qualified Code: F25.1 - Schizoaffective disorder, depressive type Romario Yoo MD July 10, 2016 12:43
[2016-07-10] MEDS ORDERED: PATIENT OWN MEDICATION IM SCH (15:00)
[2016-07-10 18:00] VITALS: BP 120/69; PULSE 61; RESP 18; TEMP 97.8; O2SAT 97
[2016-07-10] MEDS: LORazepam 0.5 MG TAB PO PRN (20:44)
[2016-07-10] MEDS: LATANOPROST 0.005% OPHT SOLN 2.5 ML BTL LEFT EYE SCH (20:44)
[2016-07-10] MEDS: ACETAMINOPHEN 325 MG TAB PO PRN (20:45)
[2016-07-11 06:09] VITALS: BP 112/70; PULSE 46; RESP 18; TEMP 97.3; O2SAT 96
[2016-07-11 06:13] VITALS: PULSE 48
[2016-07-11] MEDS: ESCITALOPRAM OXALATE 10 MG TAB PO SCH (08:51)
[2016-07-11] MEDS: PANTOPRAZOLE SOD 40 MG DELAYED RELEASE TAB PO SCH (08:51)
[2016-07-11] MEDS: ARIPiprazole 15 MG TAB PO SCH ×2 (08:51→20:57)
--- NOTE | 2016-07-11 13:49 | HHI.PYPN ---
Subjective Remarks Patient seen in day room for safe. Chart reviewed. Patient did receive his Abilify maintain a yesterday. Patient states voices are just about gone. The remain some vigilance and guarding led to her somewhat softer Review of Systems Except as stated in HPI: all other systems reviewed are Neg Objective Alert: Yes [place]: Person, Place, Date Mood: Anxious Affect: Blunted Memory Intact: Comment (fair) Hallucinations: Auditory (fading) Delusions: No Delusion Type: Other (vigilant) Suicidal: Ideation (denies) Homicidal: Ideation (denies) Insight/Judgment Poor Vitals/IOs Vital Signs Date Time Temp Pulse Resp B/P Pulse Ox O2 Delivery O2 Flow Rate FiO2 07/11/16 06:13 48 07/11/16 06:09 97.3 18 112/70 96 Assessment & Plan Problem List: (1) Schizoaffective disorder ICD Code: F25.9 (2) Marijuana abuse ICD Code: F12.10 Assessment & Plan Estimated LOS: days patient psychosis continues to diminish. Compliant medications. For now continue treatment Justification for Cont. Inpt. This time patient will decompensated placed in the lower level of care Discharge Planning To be determined Request HC Surrog/Guard Advoc?: No Problem Qualifiers (1) Schizoaffective disorder: Qualified Code: F25.1 - Schizoaffective disorder, depressive type Romario Yoo MD July 11, 2016 13:49
[2016-07-11 17:23] VITALS: BP 128/70; PULSE 78; RESP 18; TEMP 98.4; O2SAT 94
[2016-07-11] MEDS: LATANOPROST 0.005% OPHT SOLN 2.5 ML BTL LEFT EYE SCH (20:58)
[2016-07-12 05:29] VITALS: BP 126/58; PULSE 50; RESP 18; TEMP 97.1; O2SAT 97
[2016-07-12] MEDS: ARIPiprazole 15 MG TAB PO SCH ×2 (09:13→20:43)
[2016-07-12] MEDS: PANTOPRAZOLE SOD 40 MG DELAYED RELEASE TAB PO SCH (09:13)
[2016-07-12] MEDS: ESCITALOPRAM OXALATE 10 MG TAB PO SCH (09:13)
--- NOTE | 2016-07-12 11:10 | HHI.PYPN ---
Subjective Remarks Patient seen in his room with nurse Glenis, chart reviewed. Patient compliant medication. Patient states the voices how markedly decreased or almost gone, he denies suicidality, he states he has not had any recent conversation with his family though it plans to return home with them. Will ask counselor contact family to verify a willingness to have her back in their home & get their opinion as to how he is doing Review of Systems Except as stated in HPI: all other systems reviewed are Neg Objective Alert: Yes [place]: Person, Place, Date Mood: Anxious Affect: Blunted Memory Intact: Comment (fair) Hallucinations: Auditory (fading) Delusions: No Delusion Type: Other (vigilant) Suicidal: Ideation (denies) Homicidal: Ideation (denies) Insight/Judgment Poor Vitals/IOs Vital Signs Date Time Temp Pulse Resp B/P Pulse Ox O2 Delivery O2 Flow Rate FiO2 07/12/16 05:29 97.1 50 18 126/58 97 Assessment & Plan Problem List: (1) Schizoaffective disorder ICD Code: F25.9 (2) Marijuana abuse ICD Code: F12.10 Assessment & Plan Estimated LOS: days patient psychosis continues to improve. Compliant medications. The consul contact patient's family to get further information Justification for Cont. Inpt. At this time patient will decompensate in place to the lower level of care Discharge Planning To be determined Request HC Surrog/Guard Advoc?: No Problem Qualifiers (1) Schizoaffective disorder: Qualified Code: F25.1 - Schizoaffective disorder, depressive type Romario Yoo MD July 12, 2016 11:10
[2016-07-12] MEDS: LORazepam 0.5 MG TAB PO PRN (11:35)
[2016-07-12 15:15] VITALS: BP 131/77; PULSE 66; RESP 18; TEMP 98.1; O2SAT 96
[2016-07-12] MEDS: LATANOPROST 0.005% OPHT SOLN 2.5 ML BTL LEFT EYE SCH (20:43)
[2016-07-13 06:08] VITALS: BP 115/66; PULSE 60; RESP 18; TEMP 97.7; O2SAT 98
[2016-07-13] MEDS: ESCITALOPRAM OXALATE 10 MG TAB PO SCH (08:45)
[2016-07-13] MEDS: ARIPiprazole 15 MG TAB PO SCH ×2 (08:45→21:06)
[2016-07-13] MEDS: PANTOPRAZOLE SOD 40 MG DELAYED RELEASE TAB PO SCH (08:45)
[2016-07-13] MEDS: ACETAMINOPHEN 325 MG TAB PO PRN (13:00)
--- NOTE | 2016-07-13 13:53 | HHI.PYPN ---
Subjective Remarks Patient seen in his room with nurse Glenis, chart review, compliant medications. patient states he is doing better but there is somewhat vague referral to voices. He also remains somewhat vigilant. Today focusing on discharge. However I feel patient does remain somewhat psychotic needs further treatment and observation. He did take the Abilify maintain the injection need more time for that also. We'll consider discharge after the weekend Review of Systems Except as stated in HPI: all other systems reviewed are Neg Objective Alert: Yes [place]: Person, Place, Date Mood: Anxious Affect: Blunted Memory Intact: Comment (fair) Hallucinations: Auditory (fading) Delusions: No Delusion Type: Other (vigilant) Suicidal: Ideation (denies) Homicidal: Ideation (denies) Insight/Judgment Poor Vitals/IOs Vital Signs Date Time Temp Pulse Resp B/P Pulse Ox O2 Delivery O2 Flow Rate FiO2 07/13/16 06:08 97.7 60 18 115/66 98 Assessment & Plan Problem List: (1) Schizoaffective disorder ICD Code: F25.9 (2) Marijuana abuse ICD Code: F12.10 Assessment & Plan Estimated LOS: days patient's paranoia and psychosis and voices have markedly diminished though continue at times intrusive. For now continue treatment. Justification for Cont. Inpt. At this time patient will decompensate then placed in a lower level of care Discharge Planning To be determined Request HC Surrog/Guard Advoc?: No Problem Qualifiers (1) Schizoaffective disorder: Qualified Code: F25.1 - Schizoaffective disorder, depressive type Romario Yoo MD July 13, 2016 13:53
[2016-07-13 15:30] VITALS: BP 122/69; PULSE 62; RESP 18; TEMP 97.6; O2SAT 94
[2016-07-13] MEDS: LATANOPROST 0.005% OPHT SOLN 2.5 ML BTL LEFT EYE SCH (21:00)
[2016-07-13] MEDS: hydrOXYzine HCL 50 MG TAB PO PRN (21:06)
[2016-07-13] MEDS: diphenhydrAMINE HCL 50 MG CAP - HS PRN PO (21:06)
[2016-07-14 06:16] VITALS: BP 118/60; PULSE 45; RESP 16; TEMP 98.3; O2SAT 98
[2016-07-14] MEDS: PANTOPRAZOLE SOD 40 MG DELAYED RELEASE TAB PO SCH (09:02)
[2016-07-14] MEDS: ESCITALOPRAM OXALATE 10 MG TAB PO SCH (09:02)
[2016-07-14] MEDS: ARIPiprazole 15 MG TAB PO SCH ×2 (09:02→21:13)
--- NOTE | 2016-07-14 13:26 | HHI.PYPN ---
Subjective Remarks Pt seen and discussed with staff. He reports that he is tolerating medications without side effects and feels that they are effective. He reports AH persist but are lessening and today he has only heard faint muffled voices which are not bothersome. No SI/HI. He has been secluded to room, but did attend coffee shop group off of the unit. Objective Alert: Yes [place]: Person, Place, Date Mood: Calm Affect: Flat Memory Intact: Comment (fair) Hallucinations: Auditory (mild) Delusions: No Delusion Type: Other (none) Suicidal: Ideation (denies) Homicidal: Ideation (denies) Insight/Judgment poor Vitals/IOs Vital Signs Date Time Temp Pulse Resp B/P Pulse Ox O2 Delivery O2 Flow Rate FiO2 07/14/16 06:16 98.3 45 16 118/60 98 Assessment & Plan Problem List: (1) Schizoaffective disorder ICD Code: F25.9 (2) Marijuana abuse ICD Code: F12.10 Assessment & Plan Continue current tx plan. Estimated LOS: days Justification for Cont. Inpt. risk of decompensation Request HC Surrog/Guard Advoc?: No Problem Qualifiers (1) Schizoaffective disorder: Qualified Code: F25.1 - Schizoaffective disorder, depressive type Alia Jasso MD July 14, 2016 13:26
[2016-07-14 17:24] VITALS: BP 133/84; PULSE 86; RESP 18; TEMP 99.8; O2SAT 96
[2016-07-14] MEDS: ACETAMINOPHEN 325 MG TAB PO PRN ×2 (18:39→21:14)
[2016-07-14] MEDS: hydrOXYzine HCL 50 MG TAB PO PRN (21:13)
[2016-07-14] MEDS: LATANOPROST 0.005% OPHT SOLN 2.5 ML BTL LEFT EYE SCH (21:14)
[2016-07-15 06:46] VITALS: BP 141/76; PULSE 58; RESP 19; TEMP 97.7; O2SAT 95
[2016-07-15] MEDS: ARIPiprazole 15 MG TAB PO SCH ×2 (08:25→21:34)
[2016-07-15] MEDS: PANTOPRAZOLE SOD 40 MG DELAYED RELEASE TAB PO SCH (08:25)
[2016-07-15] MEDS: ESCITALOPRAM OXALATE 10 MG TAB PO SCH (08:25)
[2016-07-15] MEDS ORDERED: BENZTROPINE MESYLATE 1 MG TAB PO ONE (11:00)
--- NOTE | 2016-07-15 12:38 | HHI.PYPN ---
Subjective Remarks Pt seen and discussed with staff. He c/o of eps (intermittent jaw stiffening) and reports he has used cogentin to good effect in the past. AH are dampened. No SI/HI Objective Alert: Yes [place]: Person, Place, Date Mood: Calm Affect: Flat Memory Intact: Comment (fair) Hallucinations: Auditory (mild) Delusions: No Delusion Type: Other (none) Suicidal: Ideation (denies) Homicidal: Ideation (denies) Insight/Judgment fair Vitals/IOs Vital Signs Date Time Temp Pulse Resp B/P Pulse Ox O2 Delivery O2 Flow Rate FiO2 07/15/16 06:46 97.7 58 19 141/76 95 Assessment & Plan Problem List: (1) Schizoaffective disorder ICD Code: F25.9 (2) Marijuana abuse ICD Code: F12.10 Assessment & Plan Gave pt a now dose of cogentin. Will add scheduled to medication regimen. Estimated LOS: days Justification for Cont. Inpt. medication changes. Request HC Surrog/Guard Advoc?: No Problem Qualifiers (1) Schizoaffective disorder: Qualified Code: F25.1 - Schizoaffective disorder, depressive type Alia Jasso MD July 15, 2016 12:37
[2016-07-15 18:22] VITALS: BP 130/70; PULSE 60; RESP 18; TEMP 98.7; O2SAT 97
[2016-07-15] MEDS: LATANOPROST 0.005% OPHT SOLN 2.5 ML BTL LEFT EYE SCH (21:34)
[2016-07-15] MEDS: BENZTROPINE MESYLATE 1 MG TAB PO SCH (21:34)
[2016-07-16 06:00] VITALS: BP 125/76; PULSE 56; RESP 18; TEMP 97; O2SAT 96
[2016-07-16] MEDS: ARIPiprazole 15 MG TAB PO SCH ×2 (09:23→21:06)
[2016-07-16] MEDS: PANTOPRAZOLE SOD 40 MG DELAYED RELEASE TAB PO SCH (09:23)
[2016-07-16] MEDS: ESCITALOPRAM OXALATE 10 MG TAB PO SCH (09:23)
[2016-07-16] MEDS: BENZTROPINE MESYLATE 1 MG TAB PO SCH ×2 (09:23→21:06)
--- NOTE | 2016-07-16 14:22 | HHI.PYPN ---
Subjective Remarks Patient seen in day room with nurse Taisha, chart reviewed. Patient compliant medication. Patient showing some decrease in his paranoia vigilance and guardedness. Now states the voices are gone. Feels medication is helping. Also feels the use of the Abilify maintain a his stabilizing him. He states his had good conversations with his family. It appears willing to have come home tomorrow Review of Systems Except as stated in HPI: all other systems reviewed are Neg Objective Alert: Yes [place]: Person, Place, Date Mood: Calm Affect: Flat Memory Intact: Comment (fair) Hallucinations: Auditory (mild) Delusions: No Delusion Type: Other (none) Suicidal: Ideation (denies) Homicidal: Ideation (denies) Insight/Judgment Poor Vitals/IOs Vital Signs Date Time Temp Pulse Resp B/P Pulse Ox O2 Delivery O2 Flow Rate FiO2 07/16/16 06:00 97.0 56 18 125/76 96 Assessment & Plan Problem List: (1) Schizoaffective disorder ICD Code: F25.9 (2) Marijuana abuse ICD Code: F12.10 Assessment & Plan Estimated LOS: days patient psychosis continues to soften. Compliant medications. It appears family is willing to have patient return home tomorrow the patient does well overnight I would agree Justification for Cont. Inpt. At this time patient will decompensate the place to the lower level of care Discharge Planning To be determined Request HC Surrog/Guard Advoc?: No Problem Qualifiers (1) Schizoaffective disorder: Qualified Code: F25.1 - Schizoaffective disorder, depressive type Romario Yoo MD July 16, 2016 14:22
[2016-07-16 17:19] VITALS: BP 124/72; PULSE 55; RESP 18; TEMP 98.5; O2SAT 97
[2016-07-16] MEDS: LATANOPROST 0.005% OPHT SOLN 2.5 ML BTL LEFT EYE SCH (21:06)
[2016-07-16] MEDS: ACETAMINOPHEN 325 MG TAB PO PRN (21:30)
[2016-07-17 06:13] VITALS: BP 120/60; PULSE 80; RESP 17; TEMP 97.3; O2SAT 98
[2016-07-17] MEDS: BENZTROPINE MESYLATE 1 MG TAB PO SCH (09:00)
[2016-07-17] MEDS: PANTOPRAZOLE SOD 40 MG DELAYED RELEASE TAB PO SCH (09:00)
[2016-07-17] MEDS: ESCITALOPRAM OXALATE 10 MG TAB PO SCH (09:00)
[2016-07-17] MEDS: ARIPiprazole 15 MG TAB PO SCH (09:00)
[2016-07-17] MEDS ORDERED: LATANOPROST 0.005% LEFT EYE (11:28)
[2016-07-17] MEDS ORDERED: ESCI10TA PO (11:28)
[2016-07-17] MEDS ORDERED: ARIP10IN IM (11:28)
[2016-07-17] MEDS ORDERED: PROT40TA PO (11:28)
[2016-07-17] MEDS ORDERED: OPTH LEFT EYE (11:28)
[2016-07-17] MEDS ORDERED: Benztropine PO (11:28)
[2016-07-17] MEDS ORDERED: ARIP1TAB13 PO (11:28)
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
== END 2016-07-17 13:20 | disposition home or self-care (01) | DRG 885 ==
LOC: NEPD 12:02 → NEDA 18:11 → H270 20:05
PROVIDERS: ADMIT Psychiatry & Neurology Psychiatry; ATTEND Psychiatry & Neurology Psychiatry
DX: F25.9 Schizoaffective disorder, unspecified (principal); H33.22 Serous retinal detachment, left eye; F12.10 Cannabis abuse, uncomplicated; H40.9 Unspecified glaucoma; F17.210 Nicotine dependence, cigarettes, uncomplicated; Z87.11 Personal history of peptic ulcer disease
CPT/HCPCS: 80048; 80053; 80061; 80307; 83036; 83690; 85025; 99284; Q0163